=== PATIENT | male | born 1980 | race Two or more races ===

== ENCOUNTER 2025-01-27 12:10 | Emergency (ER) | payer MEDICAID ==
[~2025-01-27] VITALS: Ht 182.9 cm; Wt 104.2 kg
--- NOTE | 2025-01-27 14:03 | ED.PDOC ---
HPI (NEURO) HPI Comments 44-year-old male presents to the ER with a chief complaint of a headache. Patient reports on having a constant throbbing like headache on the top of the head associated with a high blood pressure, and left hand numbness which comes and goes since yesterday. Patient states on the headache being a 7/10 on the pain scale. Patient denies weakness to the left hand and the headache not being the worst headache he has ever had. Denies any other symptoms at this time. Denies fever, chills, night sweats Denies persistent nausea Denies vomiting Denies thunderclap headache Denies photophobia, phonophobia Denies head trauma around the time headache started Denies family history of brain issues persistent headaches Denies taking any blood thinner medication Denies vision/hearing changes Denies focal loss of strength/sensation or changes in speech Chief Complaint: Headache Time Seen by MD: 14:00 Reviewed Notes: Nurses Notes, Medications, Allergies Information Source: Patient Mode of Arrival: Ambulatory Severity: Moderate Headache Severity: Moderate, Like previous Headaches Timing: Hours Duration: Since onset, Hours Prehospital treatment: None Headache Quality: Throbbing Headache Location: Parietal Numbness Location: Other (Left-hand) Onset: At rest Circumstances: Spontaneous Symptoms: Numbness, Other (Headache, high blood pressure) Before: Normal During: Awake After: Headache, Normal Mentation History of: None Associated Signs and Symptoms: Headache, Numbness (Left hand) Past Medical History PAST MEDICAL HISTORY: Denies Surgical History: Denies all surgeries Family History Family History: Reviewed,noncontributory to illness, Unknown Social History Smoker: Non-Smoker Alcohol: Denies ETOH Use Drugs: Denies Drug Use Lives In: Home Constitutional: denies: chills, diaphoresis, fatigue, fever, malaise, sweats, weakness, others EENTM: denies: blurred vision, double vision, ear bleeding, ear discharge, ear drainage, ear pain, ear ringing, eye pain, eye redness, hearing loss, mouth pain, mouth swelling, nasal discharge, nose bleeding, nose congestion, nose pain, photophobia, tearing, throat pain, throat swelling, voice changes, others Respiratory: denies: cough, hemoptysis, orthopnea, SOB at rest, shortness of breath, SOB with excertion, stridor, wheezing, others Cardiovascular: denies: chest pain, dizzy spells, diaphoresis, Dyspnea on exertion, edema, irregular heart beat, left arm pain, lightheadedness, palpitations, PND, syncope, others Gastrointestinal: denies: abdomen distended, abdominal pain, blood streaked bowels, constipated, diarrhea, dysphagia, difficulty swallowing, hematemesis, melena, nausea, poor appetite, poor fluid intake, rectal bleeding, rectal pain, vomiting, others Genitourinary: denies: burning, dysuria, flank pain, frequency, hematuria, incontinence, penile discharge, penile sore, pain, testicle pain, testicle swelling, urgency, others Neurological: reports: headache, numbness (Left hand numbness); denies: dizziness, fainting, left sided numbness, left sided weakness, paresthesia, pre- existing deficit, right sided numbness, right sided weakness, seizure, speech problems, tingling, tremors, weakness, others Musculoskeletal: denies: back pain, gout, joint pain, joint swelling, muscle pain, muscle stiffness, neck pain, others Integumetry: denies: bruises, change in color, change in hair/nails, dryness, laceration, lesions, lumps, rash, wounds, others Allergic/Immunocompromised: denies: Difficulty Healing, Frequent Infections, Hives, Itching, others Hematologic/Lymphatic: denies: anemia, blood clots, easy bleeding, easy bruising, swollen glands, others Endocrine: denies: excessive hunger, excessive sweating, excessive thirst, excessive urination, flushing, intolerance to cold, intolerance to heat, unexplained weight gain, unexplained weight loss, others Psychiatric: denies: anxiety, bipolar disorder, depression, hopeless, panic disorder, schizophrenia, sleepless, suicidal, others All Other Systems: Reviewed and Negative Physical Exam Exam Comments Headache normocephalic atraumatic General Appearance: No Apparent Distress, Normal HEENT: Normal ENT Inspection, Pharynx Normal, TMs Normal Neck: Full Range of Motion, Non-Tender, Normal, Normal Inspection Respiratory: Chest Non-Tender, Lungs Clear, No Accessory Muscle Use, No Respiratory Distress, Normal Breath Sounds Cardiovascular: No Edema, No JVD, No Murmur, No Gallop, Normal Peripheral Pu lses, Regular Rate/Rhythm Breast Exam: Deferred Gastrointestinal: No Organomegaly, Non Tender, No Pulsatile Mass, Normal Bowel Sounds, Soft Genitalia: Deferred Pelvic: Deferred Rectal: Deferred Extremities: No calf tenderness, Normal capillary refill, Normal inspection, Normal range of motion, Non-tender, No pedal edema Musculoskeletal : Apperance: Normal Neurologic: Alert, rat farmer II-XII nml as Tested, No Motor Deficits, Normal Affect, Normal Mood, No Sensory Deficits Cerebellar Function: Normal Reflexes: Normal Skin: Dry, Normal Color, Warm Lymphatic: No Adenopathy Was a procedure done? Was a procedure done?: No Differential Diagnosis (SZ) Seizure: Other X-Ray, Labs, Meds, VS Vital Signs Date Time Temp Pulse Resp B/P (MAP) Pulse Ox O2 Delivery O2 Flow Rate FiO2 01/27/25 14:24 83 18 97 Room Air 01/27/25 14:24 98.2 83 18 143/94 (110) 97 98.2 01/27/25 12:15 98.2 89 16 144/95 98 98.2 Lab Test 01/27/25 14:06 01/27/25 13:40 Range/Units White Blood Count 9.2 4.4-10.8 10^3/uL Red Blood Count 5.39 4.5-5.90 10^6/uL Hemoglobin 16.6 13.5-17.5 g/dL Hematocrit 47.5 41.0-53.0 % Mean Corpuscular Volume 88.1 80.0-100.0 fL Mean Corpuscular Hemoglobin 30.7 28.0-32.0 pg Mean Corpuscular Hemoglobin Concent 34.9 32.0-36.0 g/dL Red Cell Distribution Width 13.5 11.8-14.3 % Platelet Count 328 140-450 10^3/uL Mean Platelet Volume 7.3 6.9-10.8 fL Neutrophils (%) (Auto) 56.8 37.0-80.0 % Lymphocytes (%) (Auto) 33.8 10.0-50.0 % Monocytes (%) (Auto) 6.4 0.0-12.0 % Eosinophils (%) (Auto) 2.3 0.0-7.0 % Basophils (%) (Auto) 0.7 0.0-2.0 % Neutrophils # (Auto) 5.2 1.6-8.6 10 ^3/uL Lymphocytes # (Auto) 3.1 0.4-5.4 10 ^3/uL Monocytes # (Auto) 0.6 0-1.3 10 ^3/uL Eosinophils # (Auto) 0.2 0-0.8 10 ^3/uL Basophils # (Auto) 0.1 0-0.2 10 ^3/uL Nucleated Red Blood Cells 0.1 % Erythrocyte Sedimentation Rate 19 0-20 mm/hr Sodium Level 142 136-145 mmol/L Potassium Level 4.1 3.5-5.1 mmol/L Chloride Level 103 98-107 mmol/L Carbon Dioxide Level 29 20-31 mmol/L Anion Gap 10 5-15 Blood Urea Nitrogen 10 9-23 mg/dL Creatinine 0.70 0.700-1.30 mg/dL Glomerular Filtration Rate Calc 118 >90 mL/min BUN/Creatinine Ratio 14.3 10.0-20.0 Serum Glucose 99 74-106 mg/dL Calcium Level 9.8 8.7-10.4 mg/dL C-Reactive Protein High Sensitivity 0.37 <1.0 mg/dL Urine Color Light-yellow Yellow Urine Clarity Clear Clear Urine pH 6.0 5.0-9.0 Urine Specific [place] 1.020 1.001-1.035 Urine Protein Negative Negative Urine Ketones Negative Negative Urine Blood Negative Negative /uL Urine Nitrite Negative Negative Urine Bilirubin Negative Negative Urine Urobilinogen Normal Negative mg/dL Urine Leukocyte Esterase Negative Negative /uL Urine RBC <1 0 - 3 /hpf Urine Microscopic WBC < 1 0-3 /HPF Urine Squamous Epithelial Cells None seen <5 /hpf Urine Bacteria None seen None Seen /hpf Urine Glucose Normal Normal mg/dL X-Ray, Labs, Meds, VS Comment 44-year-old male presents to the ER with a chief complaint of a headache. Patient arrives alert and oriented, ABC's intact, afebrile, vital signs stable, saturating well in room air Peripheral IV insertion+ labs were ordered. CBC was ordered to exclude anemia, blood loss, or infection. BMP was ordered to exclude electrolyte abnormalities, renal failure, dehydration, hyperglycemia C-reactive protein, UA The patients history and physical exam are consistent with a benign headache. Considered subarachnoid hemorrhage however this is less likely given that the patient has had a similar and worst headaches in the past, the lack of trauma, and the slow onset with intermittent symptomatology. Low suspicion of meningitis given the afebrile, well-appearing, and without meningismus on exam. Additionally no history of recent trauma prior to the patient experiencing this headache. Finally, the patient does not report any positional exacerbation with the headaches and has not had a recent spinal procedures therefore my suspicion for central causes and post procedural etiologies of headaches are less likely. Low concern for meningitis as there are no signs of fever, altered mentation nor neck stiffness. Brudzinski/Kernig negative. Low concern for subarachnoid hemorrhage there are no signs of a thunderclap headache Low concern for subdural hematoma and intracranial hemorrhage as there is no history of trauma, progressively worsening headache and neuroexam is unremarkable. Low suspicion for brain tumor as neuroexam is unremarkable. No nausea vomiting. No morning or nocturnal headache. No suspicion for temporal arteritis as there are no signs of fever, muscle weakness, jaw claudication, no transient visual loss. Given benign exam and history, CT imaging was discussed with the patient and was deferred during this visit. Patient was overall well-appearing and hemodynamically stable in the ED. They were able to ambulate and continued to have a nonfocal exam in the emergency department. Discussed continued symptomatic treatment at home. Recommended follow up with PCP. Return precautions to the ED discussed Counseled to start headache diary Recommended headache elimination diet Avoid prolonged periods of fasting Drink plenty of water Exercise daily, limit screen time Aim to sleep 8 to 9 hours per night, practice good hygiene ED precautions given Additional MDM Review of External, Non-ED records: External records reviewed. Discussion with independent historian (EMS, family) history obtained from the patient/parents (if applicable) at bedside Chronic conditions affecting care: None Social determinants of health affecting care: None Consideration of admission (observation or admission): I considered escalation of care to admission for this patient, however given the reassuring workup, the patient is safe for outpatient management. Discussion with the Radiology: No Tests considered but not performed: Prescription medication considered but not given: 12 lead EKG interpretation: Time of 1ST Reevaluation: 14:30 Reevaluation 1ST: Unchanged Time of 2ND Reevaluation: 16:00 Reevaluation 2ND: Improved Patient Education/Counseling: Diagnosis, Treatment, Prognosis Family Education/Counseling: No Family Present Departure 1 Departure Time of Disposition: 16:23 Impression: Primary Impression: Headache Qualified Codes: R51.9 - Headache, unspecified Disposition: 01 HOME / SELF CARE / HOMELESS Condition: Stable e-Prescriptions Ibuprofen (Ibuprofen) 600 Mg Tab 1 TAB PO TIDPRN PRN for 10 Days, #30 TAB 0 Refills Prov: RAHUL GARCIA NP 01/27/25 Critical Care Note Critical Care Time?: No Stability Stability form required: No Heart Score Heart Score: Heart Score Response (Comments) Value History N/A 0 EKG N/A 0 Age N/A 0 Risk Factors N/A 0 Troponin N/A 0 Total 0 I personally scribed for RAHUL GARCIA NP ([email or web address]) on 01/27/25 at 14:02. Electronically submitted by Ki Gao ([email or web address]). RAHUL GARCIA NP Jan 27, 2025 14:02
[2025-01-27 14:24] VITALS: BP 143/94; PULSE 83; RESP 18; TEMP 98.2; O2SAT 97
[2025-01-27 14:25] LABS: Hematocrit 47.5 % (41.0-53.0); Hemoglobin 16.6 g/dL (13.5-17.5); Mean Corpuscular Hemoglobin 30.7 pg (28.0-32.0); Mean Corpuscular Volume 88.1 fL (80.0-100.0); Nucleated Red Blood Cells % 0.1 %
[2025-01-27 14:32] LABS: Urine Protein, UAD Negative (Negative)
[2025-01-27 14:35] LABS: Chloride 103 mmol/L (98-107); Potassium 4.1 mmol/L (3.5-5.1); Sodium 142 mmol/L (136-145)
[2025-01-27 14:36] LABS: Anion Gap 10 (5-15); Calcium 9.8 mg/dL (8.7-10.4); Carbon Dioxide 29 mmol/L (20-31)
[2025-01-27 14:41] LABS: BUN/Creatinine Ratio 14.3 (10.0-20.0); Blood Urea Nitrogen 10 mg/dL (9-23); Glucose 99 mg/dL (74-106)
[2025-01-27] MEDS ORDERED: IBUP-1454 PO (16:24)
== END 2025-01-27 16:29 | disposition home or self-care (01) ==
LOC: ER 12:10
DX: R51.9 Headache, unspecified (principal); Z79.899 Other long term (current) drug therapy
CPT/HCPCS: 36415; 80048; 81001; 85025; 85652; 86141